=== PATIENT | female | born 1995 | race Caucasian/White ===

== ENCOUNTER 2021-04-08 18:13 | Emergency (ER) | payer OTHER ==
[~2021-04-08 18:13] MED LIST: COLACE100 MG PO; IBUPROFEN600 MG PO; NORCO 5-325 TA1 EACH PO; PRAMET FA TAB1 EA PO; ZANTAC150 MG PO
[2021-04-08] MEDS ORDERED: PYRIDIUM200 MG PO (21:28)
[2021-04-08] MEDS ORDERED: OMNICEF 300 MG300 MG PO (21:28)
[2021-04-08] MEDS ORDERED: ZOFRAN4 MG PO (21:28)
[2021-04-10 19:09] LABS: CHLAMYDIA TRACHOMATIS, NAA Negative (Negative); NEISSERIA GONORRHOEAE, NAA Negative (Negative)
== END 2021-04-08 21:30 | disposition home or self-care (01) ==
LOC: ER1 18:13
PROVIDERS: Physician Assistant Medical
DX: N39.0 Urinary tract infection, site not specified (principal); F17.200 Nicotine dependence, unspecified, uncomplicated; Z88.5 Allergy status to narcotic agent; Z91.040 Latex allergy status
CPT/HCPCS: 81001; 84703; 99283